=== PATIENT | male | born 1965 | race Caucasian/White ===

== ENCOUNTER 2022-01-08 08:06 | Day surgery (SDC) | payer BC, SELFPAY ==
[2022-01-04 13:44] VITALS: BMI 23.1
[2022-01-08 08:18] VITALS: BP 120/87; PULSE 68; RESP 17; TEMP 36.1; O2SAT 99
[2022-01-08] MEDS: Lactated Ringers 1,000 ML 50 ML IVCONT (08:35)
--- NOTE | 2022-01-08 08:40 | P.CONAN_ITS ---
[facility] Past Medical History Medical History Nephrolithiasis Seasonal allergies Surgical History Surgical History No pertinent past surgical history Social History Social History Patient Tobacco Use Status: Never used Tobacco Are you DNR?: No Advance Directives: No Advance Directives Information Provided: Yes Meds Allergies Allergy/AdvReac Type Severity Reaction Status Date / Time No Known Allergies Allergy Verified 01/08/22 06:26 [No Known Allergies*] Active Medications: Current Medications Lactated Ringer's (Lr) 1,000 mls @ 50 mls/hr IVCONT .Q20H NORTH Last Admin: 01/08/22 08:35 Dose: 50 mls/hr Documented by: Home Medications Medication Instructions Recorded Confirmed Last Taken Type No Known Home Meds 01/04/22 01/04/22 Unknown History Exam Exam Date and Time: January 08, 2022 0840 Height,Weight and Vital Signs: Height 6 ft 1 in Weight 79.379 kg Last Vital Signs Temp 97 F 01/08/22 08:18 Pulse 68 01/08/22 08:18 Resp 17 01/08/22 08:18 BP 120/87 01/08/22 08:18 Pulse Ox 99 01/08/22 08:18 Airway Mallampati Class: II TM Dist: >3cm Neck ROM: Full Loose/Missing/Broken Teeth: No Heart: RRR Lungs: CTA Assessment and Plan Assessment Anesthesia Assessment: Anesthesia Plan Discussed and Chart Reviewed Final Anesthetic Review NPO: Yes ASA Class: I Final Preanesthetic Review: Meds/Allgs Chart Reviewed, Consent Obtained/Reviewed and Anes Risks/Benef Reviewed Patient Risk: Low Procedure Risk: Low Anesthetic Plan Anesthetic Plan: MAC: Disposition: Standard PACU
--- NOTE | 2022-01-08 08:52 | MHC.SHP ---
Pre-Procedural Eval Section A Date of Service: 01/08/22 Section B Chief Complaint: screening Details of Present Illness: screening Relevant Family History (Specify if Yes): No Relevant Social History: None Present Medications: None Medical History: No relevant PMH History of Previous Operations: No relevant previous surgery Allergies: Allergies Allergy/AdvReac Type Severity Reaction Status Date / Time No Known Allergies Allergy Verified 01/08/22 06:26 [No Known Allergies*] Review of Systems Sugical H&P ROS: Negative: Constitution, Cardiovascular, Respiratory, Neurological, Psychiatric, Hem-Onc, Allergic/Immunologic, Gastrointestinal, Genitourinary, Musculoskeletal, Integumentary, Endocrine and Eyes/Ears/Nose/Throat Exam Surgical H&P Exam: Normal: HEENT, Normal: Heart, Normal: Lungs, Normal: Extremities, Normal: Abdomen, Normal: Skin and Normal: Neurological Plan I have reviewed the history and physical and performed a pertinent physical examination on my patient. No changes have occurred unless specified.
[2022-01-08 09:20] VITALS: BP 99/50; PULSE 68; RESP 16; TEMP 36.6; O2SAT 99
--- NOTE | 2022-01-08 09:26 | PM.OP ---
Brief Operative Note Date of Service: 01/08/22 Pre-op diagnosis: screening Post-op diagnosis: same (colon polyps) Surgeon: Dejon Tomlinson Anesthesia: MAC Was an Radiotelegraph Operator Servicer used for this Procedure?: No Estimated blood loss (mL): 0 Pathology: other (polyps x3) Condition: stable Disposition: PACU
[2022-01-08 09:35] VITALS: BP 98/66; PULSE 68; RESP 16; O2SAT 98
[2022-01-08 09:49] VITALS: BP 102/69; PULSE 77; RESP 16; O2SAT 97
--- NOTE | 2022-01-08 20:39 | OP_ITS ---
SURGEON: Dejon Tomlinson MD INDICATIONS: Colon cancer screening. PREOPERATIVE DIAGNOSIS: POSTOPERATIVE DIAGNOSIS: PROCEDURE PERFORMED: Colonoscopy to the terminal ileum with snare polypectomy. ESTIMATED BLOOD LOSS: COMPLICATIONS: ANESTHESIA: ASSISTANTS: SPECIMENS: MEDICATIONS: Monitored anesthesia care. DESCRIPTION OF PROCEDURE: History and physical were performed. The risks and benefits of the procedure were explained to the patient. An informed consent was obtained and the patient was placed in the left lateral decubitus position. A digital rectal exam was performed and was found to be normal. The Olympus pediatric video colonoscope was introduced into the rectum and advanced to the cecum without difficulty. The cecum was identified by transillumination, palpation, and identification of ileocecal valve. Examination was performed. The scope was removed. He tolerated the procedure well and was taken to recovery area in stable condition. FINDINGS: The terminal ileum was normal. The visualized colonic mucosa was within normal limits without evidence of masses, ulcers, or lesions. There were 3 polyps, all less than 10 mm, which were removed with a snare. These were located at 75 cm, 65 cm, and 30 cm. No other polyps were identified. Retroflexed examination was normal. The quality of the prep was good. IMPRESSION: Colon polyps. RECOMMENDATION: Follow up the biopsy results. MD JENNIFER Anne/BALJEETL / [id number] MTDD
== END 2022-01-08 10:15 | disposition home or self-care (01) ==
PROVIDERS: PCP Internal Medicine; Visit Provider Internal Medicine Gastroenterology
PROC: 0DJD8ZZ Inspection of Lower Intestinal Tract, Via Natural or Artificial Opening Endoscopic (ICD-10-PCS; CPT 45378; principal; 2022-01-08 09:00)
DX: Z12.11 Encounter for screening for malignant neoplasm of colon (principal); Z83.71 Family history of colonic polyps; D12.4 Benign neoplasm of descending colon; D12.5 Benign neoplasm of sigmoid colon; J30.2 Other seasonal allergic rhinitis; Z87.442 Personal history of urinary calculi
CPT/HCPCS: 45385; 88305

== ENCOUNTER 2025-07-26 06:48 | Day surgery (SDC) | payer BC, SELFPAY ==
[2025-07-24 09:56] VITALS: BMI 24.6
--- NOTE | 2025-07-25 08:37 | P.CONAN_ITS ---
Documented by User: Romi Robb NP 07/25/25 08:37 HPI - Anesthesia Eval Consult details Narrative: 60yo M for Colonoscopy [facility] Past Medical History Medical History Seasonal allergies Nephrolithiasis Surgical History Surgical History (Updated 07/24/25 @ 09:59 by Aleisha Presley RN) Hx of colonoscopy (12/2021) Social History Social History Patient Tobacco Use Status: Never used Tobacco Advance Directives: No Advance Directives Information Provided: Yes Meds Allergies Allergy/AdvReac Type Severity Reaction Status Date / Time Seasonal Allergies Allergy Itchy Eyes Verified 07/25/25 09:48 Home Medications ?Medication ?Instructions ?Recorded ?Confirmed ?Last Taken ?Type ibuprofen 200 mg tablet 200 mg PO Q6H PRN Pain 07/2407/24/25 Unknown History Exam Height,Weight and Vital Signs: Height 6 ft 1 in Weight 84.595 kg Assessment and Plan Assessment Anesthesia Assessment: Chart Reviewed Documented by User: Jules Mcmanus MD 07/26/25 07:05 [facility] Past Medical History Medical History Seasonal allergies Nephrolithiasis Functional capacity: independent ambulation Family History Family history of problems with anesthesia: No Surgical History Surgical History (Updated 07/24/25 @ 09:59 by Aleisha Presley RN) Hx of colonoscopy (12/2021) History of Problems with Anesthesia: No Social History Social History Patient Tobacco Use Status: Never used Tobacco Advance Directives: No Advance Directives Information Provided: Yes Meds Allergies Allergy/AdvReac Type Severity Reaction Status Date / Time Seasonal Allergies Allergy Itchy Eyes Verified 07/25/25 09:48 Home Medications ?Medication ?Instructions ?Recorded ?Confirmed ?Last Taken ?Type ibuprofen 200 mg tablet 200 mg PO Q6H PRN Pain 07/2407/24/25 Unknown History Exam Exam Date and Time: 07/26/2025 Airway TM Dist: >3cm Heart: normal Lungs: normal Other: normal Assessment and Plan Assessment Anesthesia Assessment: Anesthesia Plan Discussed Final Anesthetic Review Family History of Problems with Anesthesia: No History of Problems with Anesthesia: No NPO: Yes ASA Class: I Final Preanesthetic Review: No Changes in Pt Med Stat, Meds/Allgs Chart Reviewed, Consent Obtained/Reviewed and Anes Risks/Benef Reviewed Patient Risk: Low Procedure Risk: Low Anesthetic Plan Anesthetic Plan: MAC: Disposition: Standard PACU
[2025-07-26 06:50] VITALS: BP 136/92; PULSE 68; RESP 20; TEMP 36.1; O2SAT 98; BMI 24.5
[2025-07-26] MEDS: Lactated Ringers 1,000 ML 100 ML IVCONT (07:12)
--- NOTE | 2025-07-26 07:39 | MHC.SHP ---
Pre-Procedural Eval Section A - 24 Hr Update-Section A only Date of Service: 07/26/25 Section B - Complete if H&P > 30 days Chief Complaint: screening Details of Present Illness: see H&P no changes Relevant Family History (Specify if Yes): No Relevant Social History: None Present Medications: see Short Stay Collaborative assessment Medical History: No relevant PMH History of Previous Operations: No relevant previous surgery Allergies: Allergies Allergy/AdvReac Type Severity Reaction Status Date / Time Seasonal Allergies Allergy Itchy Eyes Verified 07/25/25 09:48 Review of Systems Sugical H&P ROS: Negative: Constitution, Cardiovascular, Respiratory, Neurological, Psychiatric, Hem-Onc, Allergic/Immunologic, Gastrointestinal, Genitourinary, Musculoskeletal, Integumentary, Endocrine and Eyes/Ears/Nose/Throat Exam Surgical H&P Exam: Normal: HEENT, Normal: Heart, Normal: Lungs, Normal: Extremities, Normal: Abdomen, Normal: Skin and Normal: Neurological Plan Diagnosis/Plan: Unchanged I have reviewed the history and physical and performed a pertinent physical examination on my patient. No changes have occurred unless specified. Time Spent With Patient Time: Total time managing care of this patient today ____ minutes.
[2025-07-26 08:11] VITALS: BP 107/64; PULSE 72; RESP 16; TEMP 36.2; O2SAT 95
[2025-07-26 08:15] VITALS: BP 116/71; PULSE 75; RESP 12; O2SAT 99
[2025-07-26 08:20] VITALS: BP 117/67; PULSE 75; RESP 11; O2SAT 98
[2025-07-26 08:27] VITALS: BP 129/84; PULSE 83; RESP 20; TEMP 36.3; O2SAT 96
--- NOTE | 2025-07-26 08:39 | OP_ITS ---
DATE OF SERVICE: 07/26/2025 SURGEON: Dejon Tomlinson MD INDICATIONS: Colon cancer screening PREOPERATIVE DIAGNOSIS: POSTOPERATIVE DIAGNOSIS: PROCEDURE PERFORMED: Colonoscopy to the terminal ileum. ESTIMATED BLOOD LOSS: COMPLICATIONS: ANESTHESIA: Medications, monitored anesthesia. ASSISTANTS: SPECIMENS: DESCRIPTION OF PROCEDURE: A history and physical were performed. The risks and benefits of the procedure were explained to the patient. Informed consent was obtained. The patient was placed in the left lateral decubitus position. A digital rectal exam was performed and was found to be normal. The Olympus pediatric video colonoscope was introduced into the rectum and advanced to the cecum. The cecum was identified by transillumination, palpation, and identification of the ileocecal valve. Examination was performed. The scope was removed. He tolerated the procedure well and was returned to recovery area in stable condition. FINDINGS: The terminal ileum was examined and appeared normal. Visualized colonic mucosa was normal. The quality of the prep was good. No polyps were identified. Retroflexed examination was normal. IMPRESSION: Normal colonoscopy. RECOMMENDATIONS: 1. Follow up as needed. 2. Repeat colonoscopy is recommended in 10 years for average-risk individuals. MD JENNIFER Anne/MODL / [id number]
== END 2025-07-26 08:44 | disposition home or self-care (01) ==
PROVIDERS: PCP Internal Medicine; Visit Provider Internal Medicine Gastroenterology
PROC: 0DJD8ZZ Inspection of Lower Intestinal Tract, Via Natural or Artificial Opening Endoscopic (ICD-10-PCS; CPT 45378; principal; 2025-07-26 08:20)
DX: Z12.11 Encounter for screening for malignant neoplasm of colon (principal); Z86.0101 Personal history of adenomatous and serrated colon polyps
CPT/HCPCS: 45378; J2003; J2704